=== PATIENT | female | born 1970 | race Caucasian/White ===

== ENCOUNTER 2020-09-13 08:00 | Outpatient (CLI) | payer OTHER ==
[~2020-09-13] VITALS: Ht 172.7 cm; Wt 80.9 kg
[2020-09-13] MEDS ORDERED: LOPE-114 PO (09:00)
[2020-09-13] MEDS ORDERED: CALC200T3 PO (09:00)
[2020-09-13] MEDS ORDERED: CETI10CA PO (09:00)
== END 2020-09-13 23:59 | disposition home or self-care (01) ==
LOC: STAR 08:00 → EDSTATUS 09-14 11:15
PROVIDERS: ATTEND Orthopaedic Surgery
DX: U07.1 COVID-19 (principal)
CPT/HCPCS: 87635

== ENCOUNTER 2020-10-07 10:59 | Outpatient (CLI) | payer OTHER ==
[~2020-10-07 10:59] MED LIST: CALC200T3 PO; CETI10CA PO; LOPE-114 PO
[2020-10-07] MEDS ORDERED: ALBU8.5H8 INH (11:38)
== END 2020-10-07 23:59 | disposition home or self-care (01) ==
LOC: STAR 10:59
PROVIDERS: ATTEND Orthopaedic Surgery
DX: Z02.9 Encounter for administrative examinations, unspecified (principal)

== ENCOUNTER 2020-10-12 05:52 | Day surgery (SDC) | payer OTHER ==
[2020-10-07 11:39] VITALS: BP 172/90
[~2020-10-12] VITALS: Ht 172.7 cm; Wt 83.0 kg
[~2020-10-12 05:52] MED LIST changes: +ALBU8.5H8 INH
[2020-10-12] MEDS ORDERED: BUPIVACAINE/PF 0.25% ONE (06:07)
[2020-10-12] MEDS ORDERED: EPINEPHRINE 1 MG/ML, 1ML ONE (06:08)
[2020-10-12 06:39] VITALS: BP 172/90
[2020-10-12] MEDS ORDERED: LACTATED RINGERS 1,000 ML IV SCH (07:00)
[2020-10-12] MEDS ORDERED: CHLORHEXIDINE 15 ML UDC MM ONE (07:00)
[2020-10-12] MEDS ORDERED: FENTANYL PF 100 MCG/2ML ONE (07:24)
[2020-10-12] MEDS ORDERED: MIDAZOLAM 1 MG/ML, 2ML ONE (07:24)
[2020-10-12] MEDS ORDERED: DEXAMETHASONE 4 MG/ML, 1ML ONE (08:07)
[2020-10-12] MEDS ORDERED: PHENYLEPHRINE 10 MG/ML ONE (08:07)
[2020-10-12] MEDS ORDERED: EPHEDRINE 50 MG/ML, 1ML ONE (08:07)
[2020-10-12] MEDS ORDERED: LIDOCAINE-MPF 2% ,5ML ONE ×2 (08:39)
[2020-10-12] MEDS ORDERED: PROPOFOL 10 MG/ML, 20ML ONE (08:51)
[2020-10-12] MEDS ORDERED: ROCURONIUM 10MG/ML,5ML ONE (08:51)
[2020-10-12] MEDS ORDERED: CEFAZOLIN 1,000 MG ONE (08:51)
[2020-10-12] MEDS ORDERED: GLYCOPYRROLATE 0.2MG/1ML, 5ML ONE (08:51)
[2020-10-12] MEDS ORDERED: ONDANSETRON 2MG/ML, 2ML ONE (08:51)
[2020-10-12] MEDS ORDERED: NEOSTIGMINE 1 MG/ML, 10ML ONE (08:51)
== END 2020-10-12 11:40 | disposition home or self-care (01) ==
LOC: OR 05:52
PROVIDERS: ATTEND Orthopaedic Surgery
DX: S46.011A Strain of muscle(s) and tendon(s) of the rotator cuff of right shoulder, initial encounter (principal); S43.431A Superior glenoid labrum lesion of right shoulder, initial encounter; M75.41 Impingement syndrome of right shoulder; G89.18 Other acute postprocedural pain; I10 Essential (primary) hypertension; J45.909 Unspecified asthma, uncomplicated; F17.210 Nicotine dependence, cigarettes, uncomplicated; Z79.899 Other long term (current) drug therapy; Z88.8 Allergy status to other drugs, medicaments and biological substances; X58.XXXA Exposure to other specified factors, initial encounter; Y93.89 Activity, other specified; Y92.89 Other specified places as the place of occurrence of the external cause; Y99.8 Other external cause status
CPT/HCPCS: 29823; 29826; 29827; 64415; C1713; J0171; J0690; J1100; J2250; J2370; J2405; J2704; J2710; J3010; J7120